=== PATIENT | male | born 1965 | race Asian ===

== ENCOUNTER 2019-02-04 14:42 | Emergency (ER) | payer OTHER ==
[~2019-02-04] VITALS: Ht 182.9 cm; Wt 93.3 kg
[2019-02-04 14:56] VITALS: BP 96/73; TEMP 97.5
== END 2019-02-04 15:52 | disposition home or self-care (01) ==
LOC: ED 14:42
DX: H10.9 Unspecified conjunctivitis (principal)
CPT/HCPCS: 99281; 99283

== ENCOUNTER 2020-07-02 11:51 | Emergency (ER) | payer OTHER ==
[~2020-07-02] VITALS: Ht 182.9 cm; Wt 93.0 kg
[2020-07-02 11:57] VITALS: BP 116/64; TEMP 97
== END 2020-07-02 13:47 | disposition home or self-care (01) ==
LOC: ED 11:51
DX: M51.27 Other intervertebral disc displacement, lumbosacral region (principal)
CPT/HCPCS: 96372; 99283; J1885

== ENCOUNTER 2021-05-21 18:32 | Outpatient (CLI) | payer BC | END 2021-05-21 19:02 | disposition home or self-care (01) | LOC: RAD 18:32 | PROVIDERS: ATTEND Nurse Practitioner Family | DX: M54.17 Radiculopathy, lumbosacral region (principal); R05.3 Chronic cough ==